=== PATIENT | female | born 1985 | race African-American/Black ===

== ENCOUNTER 2016-08-03 12:31 | Emergency (ER) | payer OTHER ==
[~2016-08-03] VITALS: Wt 76.8 kg
[~2016-08-03 12:31] MED LIST: HYDR-3498 PO; IBUP-1542 PO; PRED20TA PO
[2016-08-03] MEDS ORDERED: KETOROLAC 30 MG INJ IM STA (14:01)
[2016-08-03] MEDS ORDERED: NAPR-260 PO (14:12)
[2016-08-03] MEDS ORDERED: HYDROCODONE/APAP (5/325) TAB PO ONE (14:30)
--- NOTE | 2016-08-03 15:07 | ERD ---
ER Documentation Chief Complaint Date/Time DATE: 08/03/16 TIME: 15:02 Chief Complaint low back pain chronic no recent trauma. seen in er on 08/01/16 for same HPI This 31-year-old female who presents to the emergency department today complaining of back pain. Patient states she has chronic back pain. States that she takes oxycodone and OxyContin at home. Patient states that she has had this pain since the and was seen at [facility]. States she has been having epidurals in the past day to help her. States she has had multiple different painting manager. States her primary care doctor keeps changing. Denies any . or chills, loss of bowel or bladder control. States the pain goes into both of her legs. ROS All systems reviewed and are negative except as per history of present illness. Medications Home Meds Active Scripts Naproxen* (Naprosyn*) 500 Mg Tablet, 500 MG PO BID Y for PAIN AND/OR INFLAMMATION, #30 TAB Prov:GEORGE DENG PA-C 08/03/16 Hydrocodone Bit-Acetaminophen* (Van*) 5-325 Mg Tab, 1 TAB PO Q6 Y for PAIN, # 7 TAB Prov:MICHELEL CHARLES PA-C 10/06/15 Hydrocodone Bit-Acetaminophen* (Van*) 5-325 Mg Tab, 1 TAB PO Q6 Y for PAIN, # 18 TAB Prov:ARNOLD GEORGE MD 08/23/15 Ibuprofen* (Motrin*) 600 Mg Tab, 600 MG PO Q6, #20 TAB Prov:ARNOLD GEORGE MD 08/23/15 Prednisone* (Prednisone*) 20 Mg Tab, 40 MG PO DAILY for 4 Days, TAB Prov:ARNOLD GEORGE MD 08/23/15 Prednisone* (Prednisone*) 20 Mg Tab, 40 MG PO DAILY for 5 Days, TAB Prov:CARLOS ALBERTO MOLINA DO 12/22/14 Hydrocodone Bit-Acetaminophen* (Van*) 5-325 Mg Tab, 1 TAB PO Q6 Y for PAIN, # 7 TAB Prov:CARLOS ALBERTO MOLINA DO 12/22/14 Allergies Allergies: Coded Allergies: No Known Allergy (Verified , 03/10/14) PMhx/Soc History of Surgery: Yes ( X 2) Anesthesia Reaction: No Hx Neurological Disorder: No Hx Respiratory Disorders: No Hx Cardiac Disorders: No Hx Psychiatric Problems: No Hx Miscellaneous Medical Probl: Yes (Chronic sciatic/BACK PAIN) Hx Alcohol Use: No Hx Substance Use: No Hx Tobacco Use: No Physical Exam Vitals Vital Signs Date Time Temp Pulse Resp B/P Pulse Ox O2 Delivery O2 Flow Rate FiO2 08/03/16 12:33 98.7 91 20 150/80 99 Physical Exam Const: sitting in wheelchair, NAD Head: Atraumatic Eyes: Normal Conjunctiva ENT: Normal External Ears, Nose and Mouth. Neck: Full range of motion..~ No meningismus. Resp: Clear to auscultation bilaterally Cardio: Regular rate and rhythm, no murmurs Abd: Soft, non tender, non distended. Normal bowel sounds Skin: No petechiae or rashes Back: Midline tenderness. Lateral paraspinal tenderness No erythema or warmth. No evidence of abscess. Unable to assess range of motion secondary to pain. Ext: No cyanosis, or edema Neur: Awake and alert Psych: Normal Mood and Affect Results 24 hrs Current Medications Medications (Trade) Dose Ordered Sig/Ramonita Route PRN Reason Start Time Stop Time Status Last Admin Dose Admin Ketorolac Tromethamine (Toradol) 30 mg ONCE STAT IM 08/03/16 14:01 08/03/16 14:02 DC 08/03/16 14:16 Acetaminophen/ Hydrocodone Bitart (Van (5/325)) 1 tab ONCE ONCE PO 08/03/16 14:30 08/03/16 14:30 DC 08/03/16 14:16 Procedures/MDM 31-year-old female who presents to emergency department today with chronic back pain. Patient states that she takes oxycodone and OxyContin at home. Upon review of old medical records patient has been seen here in this emergency department 8 times for chronic back pain. Patient indicated that she was seen on the at [facility]. Upon further review of patient's medications through [facility] she was receiving approximately 60 tablets of Van every month through May. Patient indicated that she has had multiple different painting manager because "my insurance keeps changing". I do not feel the patient requires laboratory workup at this time. She has no loss of bowel or bladder control and she is afebrile and otherwise well-appearing. I have low suspicion for cauda equina or abscess. I discussed the patine with Dr. Montes who recommended the patient be given a Toradol injection as well as one oral Van. The recommendation was made that the patient not be sent home on any pain medication as she is a chronic pain patient. I explained in detail that I was limited in prescribing the patient medication for home for chronic pain. I explained to the patient that I would give her a Toradol injection Van and patient stated "that isn't going to work for me". Patient then stated so you are telling me that I can't come to the emergency department anymore?" I then explained to the patient that again I would address her pain here in the emergency department but that I would not be sending her home on any pain medication. I cleaned to the patient I spoke to the medical aides teacher and he was in agreement with the plan. Patient was then requesting to speak the medical aides teacher. Dr. Montes was unavailable however Dr. Elkins personally spoke to the patient about her pain and our pain policy here. Patient understood. Patient's signs and symptoms consistent with chronic back pain with sciatica. She was given a prescription for Naprosyn for home. I also give the patient referral information for Dr. Max , painting manager and asked the patient to later call to them to see if they would be able to take her insurance. I also explained to the patient that she is best off staying with one painting manager and not seeing multiple practitioners to address her pain. At this time the patient is stable for discharge and outpatient management. Patient should follow up with their PCP in the next 1-2 days. They may return to the emergency department sooner for any persistent or worsening of symptoms. Patient understood and agreed with the plan. Departure Diagnosis: Primary Impression: Back pain Back pain location: low back pain Chronicity: chronic Back pain laterality : bilateral Sciatica presence: with sciatica Sciatica laterality: bilateral sciatica Qualified Code: M54.42 - Chronic bilateral low back pain with bilateral sciatica Condition: Fair Patient Instructions: Back Pain (Acute Or Chronic), Back Pain W/ Sciatica Referrals: DR. Max Additional Instructions: Call your primary care doctor TOMORROW for an appointment during the next 1-2 days.See the doctor sooner or return here if your condition worsens before your appointment time. Make an appointment with Dr. Max, painting manager GEORGE DENG PA-C Aug 03, 2016 15:07
== END 2016-08-03 14:30 | disposition home or self-care (01) ==
LOC: FTE 12:31
DX: M54.41 Lumbago with sciatica, right side (principal); M54.42 Lumbago with sciatica, left side
CPT/HCPCS: 96372; J1885; Z7502; Z7610